=== PATIENT | female | born 1965 | race Caucasian/White ===

== ENCOUNTER 2018-10-04 15:09 | Outpatient (CLI) | payer MEDICARE, MEDICAID ==
[~2018-10-04 15:09] MED LIST: ASPI81TA52 PO; ATOR10TA87 PO; LORA0.5T PO; ONDA4TAB9 SL
== END 2018-10-04 23:59 | disposition home or self-care (01) ==
LOC: CARD DIAG 15:09
PROVIDERS: ATTEND Internal Medicine Cardiovascular Disease
DX: I05.8 Other rheumatic mitral valve diseases (principal)
CPT/HCPCS: 93306